=== PATIENT | male | born 1965 | race Two or more races ===

== ENCOUNTER 2018-06-09 08:05 | Inpatient (IN) | payer OTHER, MEDICAID ==
[~2018-06-09] VITALS: Ht 190.5 cm; Wt 124.9 kg
[2018-06-09 08:58] LABS: Basophils # (auto) 0.1 uL; Basophils % (auto) 0.6 % (0.0-2.0); Eosinophils # (auto) 0.1 uL; Eosinophils % (auto) 1.2 % (0.0-7.0); Hematocrit 42.3 % (41.0-53.0); Hemoglobin 14.1 g/dL (13.5-17.5); Lymphocytes # (auto) 1.8 uL; Lymphocytes % (auto) 17.5 % (10.0-50.0); Mean Corpuscular Hemoglobin 30.6 pg (28.0-32.0); Mean Corpuscular Hgb Conc. 33.4 g/dL (32.0-36.0); Mean Corpuscular Volume 91.6 fL (80.0-100.0); Monocytes # (auto) 1.1 uL; Monocytes % (auto) 10.4 % (0.0-12.0); Neutrophils # (auto) 7.1 uL; Neutrophils % (auto) 70.3 % (37.0-80.0); Platelet Count (auto) 159 10^3/uL (140-450); Red Blood Cells 4.62 10^6/uL (4.5-5.90); Red Cell Distribution Width 13.8 % (11.8-14.3); White Blood Cell 10.1 10^3/uL (4.4-10.8)
[2018-06-09 09:10] LABS: Albumin 3.4 g/dL (3.4-5.0); BUN/Creatinine Ratio 14.7; Calcium 8.2 mg/dL (8.5-10.1); Potassium 3.8 mmol/L (3.5-5.1)
[2018-06-09 09:13] LABS: Bilirubin, Total 0.5 mg/dL (0.2-1.0); Total Protein 6.9 g/dL (6.4-8.2)
[2018-06-09] MEDS ORDERED: DIVA500T7 PO (11:31)
[2018-06-09] MEDS ORDERED: LEVE500T3 PO (11:31)
[2018-06-09] MEDS ORDERED: PRI50T PO ×2 (11:31)
[2018-06-09] MEDS ORDERED: LAMO150T26 PO (11:31)
[2018-06-09] MEDS ORDERED: MEMA1CAP2 PO (11:31)
[2018-06-09 12:42] LABS: Urine Bacteria NONE SEEN /hpf (None Seen); Urine Blood Negative /uL (Negative); Urine Mucus FEW (None Seen); Urine Specific Gravity 1.015 (1.001-1.035); Urine WBC <1 /hpf (0 - 3)
[2018-06-09] MEDS ORDERED: LORazepam 2MG/ML-1ML VIAL IV PRN ×2 (12:45→20:30)
[2018-06-09] MEDS ORDERED: LEVETIRACETAM 500 MG TAB PO ONE (12:45)
[2018-06-09] MEDS ORDERED: lamoTRIgine 100 MG TAB PO ONE (13:00)
[2018-06-09] MEDS ORDERED: MEMANTINE HCL 5 MG TAB PO ONE (13:00)
[2018-06-09] MEDS ORDERED: PRIMIDONE 50 MG TAB PO ONE (13:00)
[2018-06-09] MEDS ORDERED: cefTRIAXone 1GM/10ml IVPUSH 10 ML IV ONE (13:00)
[2018-06-09] MEDS ORDERED: ACETAMINOPHEN 325 MG TAB PO PRN (13:15)
[2018-06-09] MEDS ORDERED: ONDANSETRON HCL 4 MG/2 ML VIAL IV PRN (13:15)
[2018-06-09] MEDS ORDERED: TEMAZEPAM 15 MG CAP PO PRN (13:15)
[2018-06-09] MEDS ORDERED: MORPHINE SULFATE 4 MG/ML SYR/VIAL IV PRN (13:15)
[2018-06-09] MEDS ORDERED: DOCUSATE SOD 100 MG CAP PO PRN (13:15)
[2018-06-09] MEDS ORDERED: HYDROcodone-ACET 5/325MG TAB PO PRN (13:15)
[2018-06-09] MEDS: CIPROFLOXACIN 0.3%OPTH(EYE) SOL 5ML RIGHT EAR SCH ×2 (13:39→22:00)
[2018-06-09] MEDS: MULTIPLE VITAMIN TAB PO SCH (14:06)
[2018-06-09] MEDS: SODIUM CHLOR 0.9% PF (SALINE LOCK) 10ML VIAL/SYR IV SCH ×2 (14:06→22:11)
[2018-06-09] MEDS: FAMOTIDINE 20 MG TAB PO SCH ×2 (14:06→22:02)
[2018-06-09] MEDS ORDERED: ASPirin-EC 81 mg tab PO ONE (15:45)
[2018-06-09 16:00] VITALS: BP 109/66
[2018-06-09 17:00] VITALS: BP 109/66
[2018-06-09 21:29] LABS: Cholesterol 157 mg/dL (< 200); HDL Cholesterol 32 mg/dL (40-59); LDL Cholesterol 111 mg/dL (< 100); Triglycerides 145 mg/dL (< 150)
[2018-06-09 21:51] VITALS: BP 135/95
[2018-06-09] MEDS: lamoTRIgine 100 MG TAB PO SCH (21:58)
[2018-06-09] MEDS: PRIMIDONE 50 MG TAB PO SCH (21:59)
[2018-06-09] MEDS: DONEPEZIL HYDROCHLORIDE 5 MG TAB PO SCH (22:00)
[2018-06-09] MEDS: MEMANTINE HCL 5 MG TAB PO SCH (22:02)
[2018-06-09] MEDS: ATORVASTATIN 20 MG TAB PO SCH (22:02)
[2018-06-09] MEDS: LEVETIRACETAM 500 MG TAB PO SCH (22:02)
[2018-06-10 05:16] VITALS: BP 108/77
[2018-06-10 05:50] LABS: Basophils # (auto) 0 uL; Basophils % (auto) 0.2 % (0.0-2.0); Eosinophils # (auto) 0.1 uL; Eosinophils % (auto) 1.3 % (0.0-7.0); Hematocrit 40.8 % (41.0-53.0); Hemoglobin 14.3 g/dL (13.5-17.5); Lymphocytes # (auto) 2.6 uL; Mean Corpuscular Hemoglobin 32.1 pg (28.0-32.0); Mean Corpuscular Volume 91.7 fL (80.0-100.0); Monocytes # (auto) 0.8 uL; Monocytes % (auto) 8.4 % (0.0-12.0); Neutrophils # (auto) 5.5 uL; Neutrophils % (auto) 61.1 % (37.0-80.0); Platelet Count (auto) 167 10^3/uL (140-450); Red Blood Cells 4.45 10^6/uL (4.5-5.90)
[2018-06-10 06:02] LABS: Potassium 3.9 mmol/L (3.5-5.1)
[2018-06-10 06:07] LABS: Albumin 3.3 g/dL (3.4-5.0); BUN/Creatinine Ratio 11.6; Bilirubin, Total 0.5 mg/dL (0.2-1.0); Total Protein 6.9 g/dL (6.4-8.2)
[2018-06-10] MEDS: SODIUM CHLOR 0.9% PF (SALINE LOCK) 10ML VIAL/SYR IV SCH ×3 (06:20→21:28)
[2018-06-10] MEDS: PRIMIDONE 50 MG TAB PO SCH ×2 (06:20→21:24)
[2018-06-10 08:12] VITALS: BP 110/69
[2018-06-10] MEDS ORDERED: cefTRIAXone 1GM/10ml IVPUSH 10 ML IV SCH (09:00)
[2018-06-10] MEDS: ENOXAPARIN SOD 40 MG/0.4 ML SYRINGE SC SCH (10:03)
[2018-06-10] MEDS: FAMOTIDINE 20 MG TAB PO SCH ×2 (10:04→21:22)
[2018-06-10] MEDS: lamoTRIgine 100 MG TAB PO SCH ×2 (10:04→21:22)
[2018-06-10] MEDS: CIPROFLOXACIN 0.3%OPTH(EYE) SOL 5ML RIGHT EAR SCH ×2 (10:05→21:24)
[2018-06-10] MEDS: MEMANTINE HCL 5 MG TAB PO SCH ×2 (10:05→21:23)
[2018-06-10] MEDS: MULTIPLE VITAMIN TAB PO SCH (10:05)
[2018-06-10] MEDS: LEVETIRACETAM 500 MG TAB PO SCH ×2 (10:05→21:21)
[2018-06-10] MEDS: ASPirin-EC 81 mg tab PO SCH (10:05)
[2018-06-10 12:25] VITALS: BP 109/70
[2018-06-10 16:17] VITALS: BP 108/76
[2018-06-10 18:12] LABS: Alcohol, Urine < 3.0 mg/dL (0-5); Amphetamine Screen, Urine NEGATIVE (NEGATIVE); Barbiturate Scree,Urine POSITIVE (NEGATIVE); Benzodiazephine Screen, Urine NEGATIVE (NEGATIVE); Cannabinoid Screen, Urine NEGATIVE (NEGATIVE); Cocaine Screen, Urine NEGATIVE (NEGATIVE); Opiate Scree,Urine NEGATIVE (NEGATIVE); Phencyclidine Screen, Urine NEGATIVE (NEGATIVE)
[2018-06-10] MEDS: ATORVASTATIN 20 MG TAB PO SCH (21:22)
[2018-06-10] MEDS: DONEPEZIL HYDROCHLORIDE 5 MG TAB PO SCH (21:23)
[2018-06-10 21:30] VITALS: BP 129/72
[2018-06-11 05:11] VITALS: BP 147/62
[2018-06-11] MEDS: SODIUM CHLOR 0.9% PF (SALINE LOCK) 10ML VIAL/SYR IV SCH ×2 (06:22→15:17)
[2018-06-11] MEDS: PRIMIDONE 50 MG TAB PO SCH (06:23)
[2018-06-11 07:25] LABS: Basophils # (auto) 0 uL; Basophils % (auto) 0.3 % (0.0-2.0); Eosinophils # (auto) 0.2 uL; Eosinophils % (auto) 2.5 % (0.0-7.0); Hematocrit 44.2 % (41.0-53.0); Hemoglobin 14.9 g/dL (13.5-17.5); Lymphocytes # (auto) 3.4 uL; Mean Corpuscular Hemoglobin 31.1 pg (28.0-32.0); Mean Corpuscular Hgb Conc. 33.7 g/dL (32.0-36.0); Mean Corpuscular Volume 92.3 fL (80.0-100.0); Monocytes # (auto) 0.9 uL; Monocytes % (auto) 10.1 % (0.0-12.0); Neutrophils # (auto) 4.8 uL; Neutrophils % (auto) 51.1 % (37.0-80.0); Nucleated Red Blood Cells % 0.1 %; Platelet Count (auto) 172 10^3/uL (140-450); Red Blood Cells 4.79 10^6/uL (4.5-5.90); Red Cell Distribution Width 13.8 % (11.8-14.3); White Blood Cell 9.3 10^3/uL (4.4-10.8)
[2018-06-11 07:34] LABS: BUN/Creatinine Ratio 9.7; Calcium 8.2 mg/dL (8.5-10.1); Magnesium 2.7 mg/dL (1.6-2.6); Potassium 3.9 mmol/L (3.5-5.1)
[2018-06-11 09:00] VITALS: BP 136/81
[2018-06-11] MEDS: ASPirin-EC 81 mg tab PO SCH (09:54)
[2018-06-11] MEDS: LEVETIRACETAM 500 MG TAB PO SCH (09:54)
[2018-06-11] MEDS: MULTIPLE VITAMIN TAB PO SCH (09:55)
[2018-06-11] MEDS: lamoTRIgine 100 MG TAB PO SCH (09:55)
[2018-06-11] MEDS: ENOXAPARIN SOD 40 MG/0.4 ML SYRINGE SC SCH (09:55)
[2018-06-11] MEDS: CIPROFLOXACIN 0.3%OPTH(EYE) SOL 5ML RIGHT EAR SCH (09:55)
[2018-06-11] MEDS: MEMANTINE HCL 5 MG TAB PO SCH (09:55)
[2018-06-11] MEDS: FAMOTIDINE 20 MG TAB PO SCH (09:55)
[2018-06-11 13:00] VITALS: BP 155/92
[2018-06-11 16:38] VITALS: BP 135/81
[2018-06-12 09:02] LABS: Folate (Folic Acid) 9.2 ng/mL (5.38-24)
== END 2018-06-11 14:30 | disposition home health service (06) | DRG 100 ==
LOC: ER 08:13 → OVERFLOW 08:14 → WEST WING 14:51
PROVIDERS: ADMIT Internal Medicine; ATTEND Internal Medicine
DX: G40.909 Epilepsy, unspecified, not intractable, without status epilepticus (principal); G93.41 Metabolic encephalopathy; G81.94 Hemiplegia, unspecified affecting left nondominant side; R47.81 Slurred speech; H53.8 Other visual disturbances; N18.2 Chronic kidney disease, stage 2 (mild); I51.7 Cardiomegaly; E83.51 Hypocalcemia; E66.9 Obesity, unspecified; F02.80 Dementia in other diseases classified elsewhere, unspecified severity, without behavioral disturbance, psychotic disturbance, mood disturbance, and anxiety; G30.0 Alzheimer's disease with early onset; Z79.82 Long term (current) use of aspirin; Z79.899 Other long term (current) drug therapy; Z83.3 Family history of diabetes mellitus; Z68.34 Body mass index [BMI] 34.0-34.9, adult
CPT/HCPCS: 36415; 70450; 70551; 80048; 80053; 80061; 80307; 81001; 82607; 82746; 82962; 83735; 84443; 85025; 87086; 93005; 93306; 93886; 95819; 96374; 97116; 97163; 97530; J0696

== ENCOUNTER 2018-08-31 18:38 | Emergency (ER) | payer OTHER, MEDICAID ==
[~2018-08-31] VITALS: Ht 188 cm; Wt 111.1 kg
[~2018-08-31 18:38] MED LIST: DIVA1TAB59 PO; LAMO150T26 PO; LEVE500T3 PO; MEMA1CAP2 PO; PRI50T PO
[2018-08-31 19:31] LABS: Basophils # (auto) 0 uL; Basophils % (auto) 0.2 % (0.0-2.0); Eosinophils # (auto) 0 uL; Eosinophils % (auto) 0.5 % (0.0-7.0); Hematocrit 46.9 % (41.0-53.0); Hemoglobin 15.9 g/dL (13.5-17.5); Lymphocytes # (auto) 1.5 uL; Lymphocytes % (auto) 18.3 % (10.0-50.0); Mean Corpuscular Hemoglobin 31.4 pg (28.0-32.0); Mean Corpuscular Hgb Conc. 33.9 g/dL (32.0-36.0); Mean Corpuscular Volume 92.8 fL (80.0-100.0); Monocytes # (auto) 0.6 uL; Monocytes % (auto) 7.3 % (0.0-12.0); Neutrophils # (auto) 5.8 uL; Neutrophils % (auto) 73.7 % (37.0-80.0); Nucleated Red Blood Cells % 0.1 %; Platelet Count (auto) 192 10^3/uL (140-450); Red Blood Cells 5.06 10^6/uL (4.5-5.90); Red Cell Distribution Width 12.9 % (11.8-14.3); White Blood Cell 7.9 10^3/uL (4.4-10.8)
[2018-08-31 19:48] LABS: Alanine Aminotransferase 17 U/L (16-61); Albumin 3.8 g/dL (3.4-5.0); Anion Gap 10 (5-15); Blood Urea Nitrogen 14 mg/dL (7-18); Calcium 8.9 mg/dL (8.5-10.1); Carbon Dioxide 26 mmol/L (21-32); Chloride 102 mmol/L (98-107); Glucose 169 mg/dL (74-106); Potassium 3.6 mmol/L (3.5-5.1); Sodium 138 mmol/L (136-145)
[2018-08-31 19:53] LABS: Alkaline Phosphatase 52 U/L (45-117); Aspartate Aminotransferase 13 U/L (15-37); BUN/Creatinine Ratio 13.7; Bilirubin, Total 0.4 mg/dL (0.2-1.0); GFR African American 98 mL/min; GFR Non-African American 81 mL/min; Total Protein 8.3 g/dL (6.4-8.2)
[2018-08-31 20:38] VITALS: BP 134/80
[2018-08-31] MEDS ORDERED: MECLIZINE HCL 25 MG TAB PO ONE ×2 (21:00)
== END 2018-08-31 21:37 | disposition home or self-care (01) ==
LOC: ER 18:43
DX: S00.81XA Abrasion of other part of head, initial encounter (principal); R42 Dizziness and giddiness; H61.21 Impacted cerumen, right ear; Z86.73 Personal history of transient ischemic attack (TIA), and cerebral infarction without residual deficits; X58.XXXA Exposure to other specified factors, initial encounter; Y93.89 Activity, other specified; Y92.89 Other specified places as the place of occurrence of the external cause; Y99.8 Other external cause status
CPT/HCPCS: 36415; 70450; 80053; 84484; 85025; 93005; 99285; J8597

== ENCOUNTER 2020-08-01 23:16 | Emergency (ER) | payer OTHER, MEDICAID ==
[~2020-08-01] VITALS: Ht 182.9 cm; Wt 99.8 kg
[~2020-08-01 23:16] MED LIST changes: -PRI50T PO; +PRIM50TA5 PO
[2020-08-02 04:00] VITALS: BP 115/74
[2020-08-02] MEDS ORDERED: TETANUS-DIPTH-ACEL PERTUSSIS 0.5ML SYR Tdap IM ONE (05:00)
[2020-08-02] MEDS ORDERED: cefTRIAXone SOD 1,000 MG VL IM ONE (05:00)
[2020-08-02] MEDS ORDERED: BACITRACIN TOP OINT 1 UD PKG TOP ONE (06:00)
== END 2020-08-02 07:33 | disposition home or self-care (01) ==
LOC: EDBD 23:16 → ER 23:16
DX: S01.81XA Laceration without foreign body of other part of head, initial encounter (principal); G40.909 Epilepsy, unspecified, not intractable, without status epilepticus; R41.82 Altered mental status, unspecified; E11.9 Type 2 diabetes mellitus without complications; W18.39XA Other fall on same level, initial encounter; Y93.89 Activity, other specified; Y92.89 Other specified places as the place of occurrence of the external cause; Y99.8 Other external cause status
CPT/HCPCS: 12011; 70450; 72125; 90471; 90715; 99285; J0696

== ENCOUNTER 2021-02-07 09:41 | Inpatient (IN) | payer OTHER, MEDICAID ==
[~2021-02-07] VITALS: Ht 182.9 cm; Wt 114.0 kg
[2021-02-07] MEDS ORDERED: SODIUM CHLORIDE 0.9% 1,000 ML IV ONE ×2 (10:15→13:15)
[2021-02-07] MEDS ORDERED: SODIUM CHLORIDE 0.9% 500 ML IVB ONE (10:15)
[2021-02-07] MEDS ORDERED: LORazepam 2MG/ML-1ML VIAL IV ONE (10:15)
[2021-02-07 10:50] LABS: Basophils # (auto) 0 10 ^3/uL (0-0.2); Basophils % (auto) 0.2 % (0.0-2.0); Eosinophils # (auto) 0.1 10 ^3/uL (0-0.8); Eosinophils % (auto) 0.8 % (0.0-7.0); Hematocrit 39.1 % (41.0-53.0); Hemoglobin 13.6 g/dL (13.5-17.5); Lymphocytes # (auto) 1.9 10 ^3/uL (0.4-5.4); Lymphocytes % (auto) 25.3 % (10.0-50.0); Mean Corpuscular Hemoglobin 32.5 pg (28.0-32.0); Mean Corpuscular Hgb Conc. 34.7 g/dL (32.0-36.0); Mean Corpuscular Volume 93.5 fL (80.0-100.0); Monocytes # (auto) 0.6 10 ^3/uL (0-1.3); Monocytes % (auto) 7.7 % (0.0-12.0); Nucleated Red Blood Cells % 0.1 %; Red Blood Cells 4.19 10^6/uL (4.5-5.90); Red Cell Distribution Width 12.9 % (11.8-14.3); White Blood Cell 7.6 10^3/uL (4.4-10.8)
[2021-02-07 10:53] LABS: Urine Bacteria NONE SEEN /hpf (None Seen); Urine Blood Negative /uL (Negative); Urine Specific Gravity 1.031 (1.001-1.035); Urine WBC 1 /hpf (0 - 3)
[2021-02-07 11:07] LABS: INR 1.03 (0.9-1.15); Partial Thromboplastin Time 23.9 sec (23.0-31.2)
[2021-02-07 11:12] LABS: Albumin 3.4 g/dL (3.4-5.0); Anion Gap 8 (5-15); Blood Alcohol < 3.0 mg/dL (0-5); Blood Urea Nitrogen 13 mg/dL (7-18); Carbon Dioxide 28 mmol/L (21-32); Chloride 105 mmol/L (98-107); Glucose 108 mg/dL (74-106); Magnesium 2.4 mg/dL (1.6-2.6); Potassium 3.4 mmol/L (3.5-5.1); Sodium 141 mmol/L (136-145)
[2021-02-07 11:15] LABS: Amphetamine Screen, Urine NEGATIVE (NEGATIVE); Barbiturate Scree,Urine NEGATIVE (NEGATIVE); Benzodiazephine Screen, Urine NEGATIVE (NEGATIVE); Cannabinoid Screen, Urine NEGATIVE (NEGATIVE); Cocaine Screen, Urine NEGATIVE (NEGATIVE); Opiate Scree,Urine NEGATIVE (NEGATIVE); Phencyclidine Screen, Urine NEGATIVE (NEGATIVE)
[2021-02-07 11:31] LABS: Alanine Aminotransferase 19 U/L (16-61); Alkaline Phosphatase 38 U/L (45-117); Aspartate Aminotransferase 25 U/L (15-37); BUN/Creatinine Ratio 11.8; Bilirubin, Total 0.7 mg/dL (0.2-1.0); GFR African American 89 mL/min; GFR Non-African American 73 mL/min
[2021-02-07] MEDS ORDERED: NITROGLYCERIN 0.4 MG SL TAB SL PRN (13:15)
[2021-02-07] MEDS ORDERED: MORPHINE SULFATE INJECTION 2 MG/ML SYRG IV PRN (13:15)
[2021-02-07] MEDS ORDERED: LORazepam 2MG/ML-1ML VIAL IV PRN (13:15)
[2021-02-07] MEDS: SOD CHL 0.9%/ KCL 20MEQ 1,000 ML IV SCH ×2 (13:42→23:00)
[2021-02-07 18:28] VITALS: BP 123/73
[2021-02-07 18:40] VITALS: BP 123/73
[2021-02-07] MEDS ORDERED: TRAZ50TA2 PO (20:54)
[2021-02-07] MEDS ORDERED: CHOL20009 PO (20:57)
[2021-02-07] MEDS ORDERED: DONE1TAB88 PO (20:57)
[2021-02-07] MEDS: levETIRAcetam 500 MG TAB PO SCH (21:14)
[2021-02-07] MEDS: lamoTRIgine 100 MG TAB PO SCH (21:14)
[2021-02-07 21:41] VITALS: BP 124/74
[2021-02-07] MEDS ORDERED: INFLUENZA QUAD 2020-2021 0.5 ML SYRG IM ONE (23:45)
[2021-02-07] MEDS ORDERED: PNEUMOCOCCAL VACC POLYS 25 MCG/0.5 ML VIAL IM ONE (23:45)
[2021-02-08 05:40] VITALS: BP 140/74
[2021-02-08 05:54] LABS: Calcium 8.3 mg/dL (8.5-10.1); Potassium 3.7 mmol/L (3.5-5.1)
[2021-02-08 05:56] LABS: BUN/Creatinine Ratio 17.2
[2021-02-08 09:06] VITALS: BP 140/86
[2021-02-08] MEDS: levETIRAcetam 500 MG TAB PO SCH ×2 (09:39→21:38)
[2021-02-08] MEDS ORDERED: PRIMIDONE 50 MG TAB PO SCH (10:00)
[2021-02-08 13:31] VITALS: BP 129/80
[2021-02-08 17:06] VITALS: BP 131/76
[2021-02-08] MEDS ORDERED: MEMANTINE HCL DONEPEZIL HCL PO SCH (18:00)
[2021-02-08] MEDS: lamoTRIgine 100 MG TAB PO SCH (21:38)
[2021-02-08 22:00] VITALS: BP 130/67
[2021-02-09 05:00] VITALS: BP 124/81
[2021-02-09 05:54] LABS: Basophils # (auto) 0 10 ^3/uL (0-0.2); Basophils % (auto) 0.1 % (0.0-2.0); Eosinophils # (auto) 0.1 10 ^3/uL (0-0.8); Eosinophils % (auto) 1.7 % (0.0-7.0); Hematocrit 36.7 % (41.0-53.0); Lymphocytes # (auto) 2.4 10 ^3/uL (0.4-5.4); Mean Corpuscular Hgb Conc. 35.4 g/dL (32.0-36.0); Mean Corpuscular Volume 93.2 fL (80.0-100.0); Monocytes # (auto) 0.9 10 ^3/uL (0-1.3); Monocytes % (auto) 10.7 % (0.0-12.0); Neutrophils # (auto) 4.7 10 ^3/uL (1.6-8.6); Neutrophils % (auto) 57.5 % (37.0-80.0); Nucleated Red Blood Cells % 0.1 %; Red Blood Cells 3.94 10^6/uL (4.5-5.90); Red Cell Distribution Width 12.9 % (11.8-14.3); White Blood Cell 8.2 10^3/uL (4.4-10.8)
[2021-02-09 06:14] LABS: Potassium 3.3 mmol/L (3.5-5.1)
[2021-02-09 06:18] LABS: BUN/Creatinine Ratio 11.3; Calcium 8.2 mg/dL (8.5-10.1); Magnesium 2.3 mg/dL (1.6-2.6)
[2021-02-09] MEDS ORDERED: LORazepam 2MG/ML-1ML VIAL IV PRN (08:45)
[2021-02-09 08:58] VITALS: BP 130/91
[2021-02-09] MEDS: levETIRAcetam 500 MG TAB PO SCH (09:43)
[2021-02-09] MEDS ORDERED: lamoTRIgine 100 MG TAB PO SCH (10:00)
[2021-02-09 12:55] VITALS: BP 147/103
[2021-02-09] MEDS ORDERED: POTASSIUM CHL 20 Meq TABLET PO ONE (14:00)
[2021-02-09] MEDS ORDERED: LORazepam 2MG/ML-1ML VIAL IV ONE (14:15)
[2021-02-09 16:33] VITALS: BP 144/90
[2021-02-09] MEDS ORDERED: INFLUENZA QUAD 2020-2021 0.5 ML SYRG IM ONE (18:00)
[2021-02-09] MEDS ORDERED: PNEUMOCOCCAL VACC POLYS 25 MCG/0.5 ML VIAL IM ONE (18:00)
[2021-02-09] MEDS ORDERED: DONEPEZIL HYDROCHLORIDE 5 MG TAB PO SCH (22:00)
== END 2021-02-09 19:09 | disposition home health service (06) | DRG 101 ==
LOC: ER 09:41 → EDBD 09:41 → TELE 09:42 → TELE-WESTW 17:45
PROVIDERS: ADMIT Nurse Practitioner Acute Care; ATTEND Internal Medicine
DX: G40.909 Epilepsy, unspecified, not intractable, without status epilepticus (principal); G30.1 Alzheimer's disease with late onset; Z20.822 Contact with and (suspected) exposure to COVID-19; F02.80 Dementia in other diseases classified elsewhere, unspecified severity, without behavioral disturbance, psychotic disturbance, mood disturbance, and anxiety; E87.6 Hypokalemia; E66.9 Obesity, unspecified; I95.9 Hypotension, unspecified; Z68.32 Body mass index [BMI] 32.0-32.9, adult; E11.9 Type 2 diabetes mellitus without complications; Z79.899 Other long term (current) drug therapy; Z83.3 Family history of diabetes mellitus; Z86.73 Personal history of transient ischemic attack (TIA), and cerebral infarction without residual deficits
CPT/HCPCS: 36415; 51702; 70450; 70551; 71045; 80048; 80053; 80164; 80307; 80320; 81001; 82550; 83605; 83735; 84443; 84484; 85025; 85610; 85730; 87040; 87426; 93005; 96361; 96374; G0378

== ENCOUNTER 2021-06-05 19:43 | Emergency (ER) | payer OTHER, MEDICAID ==
[~2021-06-05] VITALS: Ht 177.8 cm; Wt 104.3 kg
[~2021-06-05 19:43] MED LIST changes: +CHOL20009 PO; +DONE1TAB88 PO; +TRAZ50TA2 PO
[2021-06-05] MEDS ORDERED: LORazepam 2MG/ML-1ML VIAL ONE (20:22)
[2021-06-05] MEDS ORDERED: LORazepam 2MG/ML-1ML VIAL IV ONE (20:30)
[2021-06-05 21:46] LABS: Basophils # (auto) 0 10 ^3/uL (0-0.2); Basophils % (auto) 0.1 % (0.0-2.0); Eosinophils # (auto) 0.1 10 ^3/uL (0-0.8); Eosinophils % (auto) 0.6 % (0.0-7.0); Hematocrit 35.7 % (41.0-53.0); Hemoglobin 12.4 g/dL (13.5-17.5); Lymphocytes # (auto) 1.3 10 ^3/uL (0.4-5.4); Lymphocytes % (auto) 11.9 % (10.0-50.0); Mean Corpuscular Hemoglobin 32.3 pg (28.0-32.0); Mean Corpuscular Hgb Conc. 34.8 g/dL (32.0-36.0); Mean Corpuscular Volume 92.8 fL (80.0-100.0); Monocytes # (auto) 0.8 10 ^3/uL (0-1.3); Monocytes % (auto) 7.2 % (0.0-12.0); Neutrophils # (auto) 8.6 10 ^3/uL (1.6-8.6); Neutrophils % (auto) 80.2 % (37.0-80.0); Nucleated Red Blood Cells % 0.1 %; Red Blood Cells 3.85 10^6/uL (4.5-5.90); Red Cell Distribution Width 13.5 % (11.8-14.3); White Blood Cell 10.8 10^3/uL (4.4-10.8)
[2021-06-05 22:05] LABS: BUN/Creatinine Ratio 13.7; Calcium 8.2 mg/dL (8.5-10.1); Potassium 3.1 mmol/L (3.5-5.1)
[2021-06-05 22:13] LABS: Magnesium 2.2 mg/dL (1.6-2.6)
[2021-06-06 04:58] LABS: Urine Bacteria FEW /hpf (None Seen); Urine Blood Negative /uL (Negative); Urine Hyaline Cast FEW /lpf (0 - 2); Urine Mucus FEW (None Seen); Urine Specific Gravity 1.019 (1.001-1.035); Urine Sperm PRESENT /hpf (None Seen); Urine WBC 3 /hpf (0 - 3)
[2021-06-06 05:13] LABS: Alcohol, Urine < 3.0 mg/dL (0-10); Amphetamine Screen, Urine NEGATIVE (NEGATIVE); Barbiturate Scree,Urine POSITIVE (NEGATIVE); Benzodiazephine Screen, Urine NEGATIVE (NEGATIVE); Cannabinoid Screen, Urine NEGATIVE (NEGATIVE); Cocaine Screen, Urine NEGATIVE (NEGATIVE); Opiate Scree,Urine NEGATIVE (NEGATIVE); Phencyclidine Screen, Urine NEGATIVE (NEGATIVE)
[2021-06-06] MEDS ORDERED: POTASSIUM CHL 20 Meq TABLET PO ONE (05:15)
[2021-06-06] MEDS ORDERED: levETIRAcetam 500 MG/5ML INJ IV ONE (06:58)
[2021-06-06 09:48] VITALS: BP 102/67
== END 2021-06-06 09:49 | disposition home or self-care (01) ==
LOC: EDBD 19:43 → ER 19:50
DX: G40.909 Epilepsy, unspecified, not intractable, without status epilepticus (principal); R41.82 Altered mental status, unspecified; E87.6 Hypokalemia
CPT/HCPCS: 36415; 70450; 72125; 80048; 80307; 80320; 81001; 83735; 85025; 93005; 96365; 96375; 99285; J1953; J2060; J7060

== ENCOUNTER 2021-06-18 11:38 | Emergency (ER) | payer OTHER, MEDICAID ==
[~2021-06-18] VITALS: Ht 175.3 cm; Wt 90.7 kg
[2021-06-22 15:21] VITALS: BP 142/88
== END 2021-06-22 15:37 ==
LOC: ER 11:38 → EDBD 11:38 → EDUNIT# 11:38 → ER 06-22 15:37
DX: S00.83XA Contusion of other part of head, initial encounter (principal); F03.90 Unspecified dementia, unspecified severity, without behavioral disturbance, psychotic disturbance, mood disturbance, and anxiety; E11.9 Type 2 diabetes mellitus without complications; Z79.899 Other long term (current) drug therapy; W01.0XXA Fall on same level from slipping, tripping and stumbling without subsequent striking against object, initial encounter; Y93.89 Activity, other specified; Y92.89 Other specified places as the place of occurrence of the external cause; Y99.8 Other external cause status
CPT/HCPCS: 70450; 70486; 71045; 72125

== ENCOUNTER 2022-12-10 16:57 | Inpatient (IN) | payer OTHER, MEDICAID ==
[~2022-12-10] VITALS: Ht 177.8 cm; Wt 109.3 kg
[2022-12-10 18:06] LABS: Basophils # (auto) 0 10 ^3/uL (0-0.2); Basophils % (auto) 0.1 % (0.0-2.0); Eosinophils # (auto) 0.1 10 ^3/uL (0-0.8); Eosinophils % (auto) 1.2 % (0.0-7.0); Hematocrit 40.8 % (41.0-53.0); Hemoglobin 13.8 g/dL (13.5-17.5); Lymphocytes # (auto) 1.1 10 ^3/uL (0.4-5.4); Lymphocytes % (auto) 11.2 % (10.0-50.0); Mean Corpuscular Hemoglobin 31.8 pg (28.0-32.0); Mean Corpuscular Hgb Conc. 33.9 g/dL (32.0-36.0); Mean Corpuscular Volume 93.9 fL (80.0-100.0); Monocytes # (auto) 0.8 10 ^3/uL (0-1.3); Neutrophils # (auto) 7.7 10 ^3/uL (1.6-8.6); Neutrophils % (auto) 79.5 % (37.0-80.0); Nucleated Red Blood Cells % 0.2 %; Red Blood Cells 4.35 10^6/uL (4.5-5.90); Red Cell Distribution Width 13.1 % (11.8-14.3); White Blood Cell 9.7 10^3/uL (4.4-10.8)
[2022-12-10 18:37] LABS: Albumin 3.4 g/dL (3.4-5.0); Potassium 3.4 mmol/L (3.5-5.1)
[2022-12-10 18:56] LABS: Bilirubin, Total 0.5 mg/dL (0.2-1.0); Total Protein 7.3 g/dL (6.4-8.2)
[2022-12-11] MEDS ORDERED: ACETAMINOPHEN 325 MG TAB PO PRN (01:15)
[2022-12-11] MEDS ORDERED: ONDANSETRON HCL 4 MG/2 ML VIAL IV PRN (01:15)
[2022-12-11] MEDS ORDERED: DEXTROSE (50%) 50ML SYRG IV PRN (01:15)
[2022-12-11] MEDS ORDERED: HYDROcodone-ACET 5/325MG TAB PO PRN (01:15)
[2022-12-11] MEDS ORDERED: DOCUSATE SOD 100 MG CAP PO PRN (01:15)
[2022-12-11] MEDS ORDERED: MORPHINE SULFATE INJ 2 MG/ml SYRG IV PRN (02:30)
[2022-12-11] MEDS ORDERED: POTASSIUM CHL 20 Meq TABLET PO ONE (02:30)
[2022-12-11] MEDS ORDERED: NITROGLYCERIN 0.4 MG SL TAB SL PRN (02:30)
[2022-12-11 05:35] LABS: Basophils # (auto) 0 10 ^3/uL (0-0.2); Basophils % (auto) 0.2 % (0.0-2.0); Eosinophils # (auto) 0.2 10 ^3/uL (0-0.8); Eosinophils % (auto) 2.4 % (0.0-7.0); Hematocrit 41.1 % (41.0-53.0); Hemoglobin 13.7 g/dL (13.5-17.5); Lymphocytes # (auto) 1.9 10 ^3/uL (0.4-5.4); Lymphocytes % (auto) 22.4 % (10.0-50.0); Mean Corpuscular Hemoglobin 31.2 pg (28.0-32.0); Mean Corpuscular Hgb Conc. 33.4 g/dL (32.0-36.0); Mean Corpuscular Volume 93.6 fL (80.0-100.0); Monocytes # (auto) 0.8 10 ^3/uL (0-1.3); Monocytes % (auto) 9.7 % (0.0-12.0); Neutrophils # (auto) 5.4 10 ^3/uL (1.6-8.6); Neutrophils % (auto) 65.3 % (37.0-80.0); Nucleated Red Blood Cells % 0.1 %; Red Blood Cells 4.39 10^6/uL (4.5-5.90); Red Cell Distribution Width 13.3 % (11.8-14.3); White Blood Cell 8.3 10^3/uL (4.4-10.8)
[2022-12-11 05:54] LABS: Albumin 3.5 g/dL (3.4-5.0); Calcium 8.6 mg/dL (8.5-10.1); Potassium 3.7 mmol/L (3.5-5.1)
[2022-12-11 05:59] LABS: BUN/Creatinine Ratio 19.7; Bilirubin, Total 0.6 mg/dL (0.2-1.0); Total Protein 7.2 g/dL (6.4-8.2)
[2022-12-11] MEDS: SODIUM CHLOR 0.9% PF (SALINE LOCK) 10ML VIAL/SYR IV SCH ×3 (06:04→22:04)
[2022-12-11] MEDS: ACCU-CHEK COMFORT CURVE STRIP VI SCH ×4 (06:49→21:55)
[2022-12-11] MEDS: InsuLIN REG 1unit/0.01ml Soln (100units/ml) SC SCH ×4 (06:49→22:03)
[2022-12-11 07:40] LABS: Urine Bacteria NONE SEEN /hpf (None Seen); Urine Blood Negative /uL (Negative); Urine Hyaline Cast FEW /lpf (0 - 2); Urine Mucus FEW (None Seen); Urine Specific Gravity 1.041 (1.001-1.035); Urine WBC 14 /hpf (0 - 3)
[2022-12-11] MEDS: MEMANTINE HCL 5 MG TAB PO SCH (10:27)
[2022-12-11] MEDS: ENOXAPARIN SOD 40 MG/0.4 ML SYRINGE SC SCH (10:28)
[2022-12-11] MEDS: DIVALPROEX SODIUM PO SCH (17:46)
[2022-12-11] MEDS ORDERED: LORazepam 2MG/ML-1ML VIAL IV PRN ×2 (20:30)
[2022-12-11 21:08] LABS: Amphetamine Screen, Urine NEGATIVE (NEGATIVE); Barbiturate Scree,Urine POSITIVE (NEGATIVE); Benzodiazephine Screen, Urine NEGATIVE (NEGATIVE); Cannabinoid Screen, Urine NEGATIVE (NEGATIVE); Cocaine Screen, Urine NEGATIVE (NEGATIVE); Opiate Scree,Urine NEGATIVE (NEGATIVE); Phencyclidine Screen, Urine NEGATIVE (NEGATIVE)
[2022-12-11] MEDS ORDERED: LAMOTRIGINE 300 MG PO SCH (22:00)
[2022-12-11] MEDS: lamoTRIgine 100 MG TAB PO SCH (22:05)
[2022-12-12 05:20] LABS: Basophils # (auto) 0 10 ^3/uL (0-0.2); Basophils % (auto) 0.2 % (0.0-2.0); Eosinophils # (auto) 0.2 10 ^3/uL (0-0.8); Eosinophils % (auto) 1.9 % (0.0-7.0); Hemoglobin 13.4 g/dL (13.5-17.5); Lymphocytes # (auto) 2.3 10 ^3/uL (0.4-5.4); Lymphocytes % (auto) 24.7 % (10.0-50.0); Mean Corpuscular Hemoglobin 30.7 pg (28.0-32.0); Mean Corpuscular Hgb Conc. 32.8 g/dL (32.0-36.0); Mean Corpuscular Volume 93.6 fL (80.0-100.0); Monocytes # (auto) 1.1 10 ^3/uL (0-1.3); Monocytes % (auto) 11.7 % (0.0-12.0); Neutrophils # (auto) 5.7 10 ^3/uL (1.6-8.6); Neutrophils % (auto) 61.5 % (37.0-80.0); Red Blood Cells 4.37 10^6/uL (4.5-5.90); Red Cell Distribution Width 13.4 % (11.8-14.3); White Blood Cell 9.3 10^3/uL (4.4-10.8)
[2022-12-12 05:36] LABS: Albumin 3.3 g/dL (3.4-5.0); Calcium 8.2 mg/dL (8.5-10.1)
[2022-12-12 05:40] LABS: BUN/Creatinine Ratio 16.3; Bilirubin, Total 0.4 mg/dL (0.2-1.0)
[2022-12-12] MEDS: SODIUM CHLOR 0.9% PF (SALINE LOCK) 10ML VIAL/SYR IV SCH ×3 (06:03→22:32)
[2022-12-12] MEDS: InsuLIN REG 1unit/0.01ml Soln (100units/ml) SC SCH ×4 (07:00→23:04)
[2022-12-12] MEDS: ACCU-CHEK COMFORT CURVE STRIP VI SCH ×4 (07:07→23:04)
[2022-12-12] MEDS: DIVALPROEX SODIUM PO SCH ×2 (07:35→16:41)
[2022-12-12] MEDS ORDERED: PRIMIDONE 50 MG TAB PO SCH (10:00)
[2022-12-12] MEDS ORDERED: PATIENTS OWN MEDICATION (Donepezil Hydrochloride (Donepezil Hcl) 10 MG) PO SCH (10:00)
[2022-12-12] MEDS: MEMANTINE HCL 5 MG TAB PO SCH (10:12)
[2022-12-12] MEDS: lamoTRIgine 100 MG TAB PO SCH ×2 (10:12→23:05)
[2022-12-12] MEDS: ENOXAPARIN SOD 40 MG/0.4 ML SYRINGE SC SCH (10:13)
[2022-12-12 14:18] LABS: Folate (Folic Acid) > 24.00 ng/mL (5.38-24)
[2022-12-12] MEDS ORDERED: VALPROATE INJ 500 MG in SODIUM CHL 0.9% 100 ML IV ONE (16:15)
[2022-12-12 16:51] LABS: Folate (Folic Acid) > 24.00 ng/mL (5.38-24)
[2022-12-12 18:15] LABS: Free T4 (Free Thyroxine) 0.91 ng/dL (0.89-1.76)
[2022-12-13] MEDS: SODIUM CHLOR 0.9% PF (SALINE LOCK) 10ML VIAL/SYR IV SCH ×3 (06:00→22:28)
[2022-12-13] MEDS: ACCU-CHEK COMFORT CURVE STRIP VI SCH ×4 (06:30→22:24)
[2022-12-13] MEDS: InsuLIN REG 1unit/0.01ml Soln (100units/ml) SC SCH ×4 (06:32→22:28)
[2022-12-13] MEDS: DIVALPROEX SODIUM PO SCH (06:36)
[2022-12-13 08:07] LABS: RPR Non Reactive (Non Reactive)
[2022-12-13 09:00] VITALS: BP 128/66
[2022-12-13] MEDS: MEMANTINE HCL 5 MG TAB PO SCH (11:36)
[2022-12-13] MEDS: lamoTRIgine 100 MG TAB PO SCH ×2 (11:36→22:31)
[2022-12-13] MEDS: DONEPEZIL HYDROCHLORIDE 5 MG TAB PO SCH (11:36)
[2022-12-13] MEDS: ENOXAPARIN SOD 40 MG/0.4 ML SYRINGE SC SCH (11:37)
[2022-12-13 13:00] VITALS: BP 112/78
[2022-12-13 17:00] VITALS: BP 125/86
[2022-12-14] MEDS: SODIUM CHLOR 0.9% PF (SALINE LOCK) 10ML VIAL/SYR IV SCH (06:13)
[2022-12-14] MEDS: InsuLIN REG 1unit/0.01ml Soln (100units/ml) SC SCH ×2 (06:28→11:30)
[2022-12-14] MEDS: ACCU-CHEK COMFORT CURVE STRIP VI SCH ×2 (06:28→11:30)
[2022-12-14] MEDS: lamoTRIgine 100 MG TAB PO SCH ×2 (10:00→11:19)
[2022-12-14] MEDS: MEMANTINE HCL 5 MG TAB PO SCH (10:40)
[2022-12-14] MEDS: DONEPEZIL HYDROCHLORIDE 5 MG TAB PO SCH (10:40)
[2022-12-14] MEDS: ENOXAPARIN SOD 40 MG/0.4 ML SYRINGE SC SCH (10:41)
[2022-12-14 12:28] VITALS: BP 110/78
== END 2022-12-14 13:00 | disposition hospice, home (50) | DRG 100 ==
LOC: EDBD 16:57 → ER 17:00 → OVERFLOW 12-11 02:20 → WEST WING 12-13 09:27
PROVIDERS: ADMIT Nurse Practitioner Family; ATTEND Hospitalist
DX: G40.409 Other generalized epilepsy and epileptic syndromes, not intractable, without status epilepticus (principal); G93.41 Metabolic encephalopathy; G91.2 (Idiopathic) normal pressure hydrocephalus; N39.0 Urinary tract infection, site not specified; E11.9 Type 2 diabetes mellitus without complications; F02.80 Dementia in other diseases classified elsewhere, unspecified severity, without behavioral disturbance, psychotic disturbance, mood disturbance, and anxiety; E87.6 Hypokalemia; G25.0 Essential tremor; Z20.822 Contact with and (suspected) exposure to COVID-19; G30.9 Alzheimer's disease, unspecified; I10 Essential (primary) hypertension; K52.9 Noninfective gastroenteritis and colitis, unspecified; R29.6 Repeated falls; G20 Parkinson's disease; Z83.3 Family history of diabetes mellitus; Z79.899 Other long term (current) drug therapy
CPT/HCPCS: 36415; 70551; 71045; 74176; 80053; 80164; 80307; 81001; 82270; 82607; 82746; 82962; 83690; 84439; 84443; 84484; 85025; 85048; 86592; 87045; 87426; 87427; 87493; 93005; 95819; 97110; 97116; 97163; 97530; G0378; J1815; J7060